=== PATIENT | female | born 1935 | race American Indian/Alaskan Native ===

== ENCOUNTER 2017-05-22 14:38 | Inpatient (IN) | payer MEDICARE ==
[2017-05-22 17:21] LABS: Basophils % (Auto) 0.2 % (0.0-1.8); Eosinophils % (Auto) 1.4 % (0.0-4.3); Hematocrit 35.3 % (30.3-42.9); Hemoglobin 11.4 gm/dl (10.1-14.3); Mean Corpuscular HGB Conc 32 % (30-34); Mean Corpuscular Hemoglobin 27 pg (28-32); Mean Corpuscular Volume 82 fl (79-97); Platelet Count 224 K/mm3 (140-440); Red Blood Count 4.28 M/mm3 (3.65-5.03); Red Cell Distribution Width 15.2 % (13.2-15.2); White Blood Count 18.7 K/mm3 (4.5-11.0)
[2017-05-22 17:50] LABS: Bacteria,Urine 3+ /HPF (Negative); Bilirubin,Urine NEG (Negative); Blood,Urine NEG (Negative); Ketones,Urine NEG (Negative); Leukocyte Esterase,Urine TR (Negative); Mucus,Urine 3+ /HPF; Nitrite,Urine NEG (Negative); Protein,Urine <15 mg/dL mg/dL (Negative); RBC,Urine < 1.0 /HPF (0.0-6.0); Urobilinogen,Urine < 2.0 mg/dL (<2.0)
[2017-05-22 17:54] LABS: Calcium 9.3 mg/dL (8.4-10.2); Chloride 101.4 mmol/L (98-107); Potassium 4.9 mmol/L (3.6-5.0)
--- NOTE | 2017-05-22 18:40 | Emergency Department Report ---
ED Altered Mental Status HPI - General Chief Complaint: Medical Clearance Stated Complaint: AMS Source: patient, EMS, old records reviewed Mode of arrival: Stretcher Limitations: No Limitations - History of Present Illness Initial Comments: 82-year-old female the past medical history of arthritis, CHF, diabetes, ischemic cardiomyopathy, and previous CABG presents to the hospital with complaints of not feeling well. Patient apparently has been recently treated for UTI. Patient reports decreased appetite and abdominal pain with urination. Patient also has a history of chronic left heel ulcer that has been acutely painful the last 2 days. No fever reported. As per HI MAR patient has been on Cipro 500 mg twice a day since May 22. 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 Intervention such bypass was recommended. - Related Data Home Medications Medication Instructions Recorded Confirmed Last Taken Oxybutynin Chloride [Ditropan Xl] 10 mg PO DAILY #0 05/30/16 11/24/16 Unknown Carvedilol [Coreg] 6.25 mg PO QDAY 11/24/16 11/24/16 Unknown Clopidogrel Bisulfate [Plavix] 75 mg PO QDAY 11/24/16 11/24/16 Unknown Docusate Sodium [Colace CAP] 100 mg PO BID 11/24/16 11/24/16 Unknown Ferrous Sulfate [Feosol 325 MG tab] 325 mg PO QDAY 11/24/16 11/24/16 Unknown Gluc Davies/Chondro Davies A/Vit C/Mn 1 cap PO QDAY 11/24/16 11/24/16 Unknown [Glucosamine 1,500 Complex Cp] ISOSORBIDE MONOnitrate [Imdur ER] 60 mg PO BID 11/24/16 11/24/16 Unknown Multivit with Calcium,Iron,Min 1 tab PO QDAY 11/24/16 11/24/16 Unknown [Multiple Vitamins For Women] Ondansetron [Zofran ORAL LIQ] 4 mg IM Q6H PRN 11/24/16 11/24/16 Unknown Pregabalin [Lyrica] 75 mg PO Q8H 11/24/16 11/24/16 Unknown Previous Rx's Medication Instructions Recorded Last Taken Type Gabapentin [Neurontin] 300 mg PO Q8HR capsule 11/27/16 Unknown Rx Levofloxacin [Levaquin TAB] 500 mg PO QDAY #5 tablet 11/27/16 Unknown Rx Pot Phosphate/Na Phosphate 1 each PO BID #14 powd.pack 11/27/16 Unknown Rx [Phos-Nak] Spironolactone [Aldactone] 25 mg PO QDAY tablet 11/27/16 Unknown Rx hydrALAZINE [Apresoline TAB] 25 mg PO Q8HR tablet 11/27/16 Unknown Rx Allergies Allergy/AdvReac Type Severity Reaction Status Date / Time epinephrine Allergy Unknown Verified 05/29/16 17:42 morphine Allergy Unknown Verified 05/29/16 17:42 Penicillins Allergy Unknown Verified 05/29/16 17:42 ED Review of Systems ROS: Stated complaint: AMS Other details as noted in HPI Comment: All other systems reviewed and negative Other: Constitutional: No fevers chills or weight loss Eyes: No eye pain visual changes or discharge ENT: No ear pain or throat pain Neck: Denies pain Respiratory: Denies cough wheezing shortness of breath Cardiovascular: Denies chest pain, palpitations, syncope GI: Denies nausea, vomiting, diarrhea : As per HPI Musculoskeletal: As per HPI Skin: Denies rash, lesions, erythema Neurologic: Denies headache, numbness, weakness Psychiatric: Denies suicidal ideation, hallucinations ED Past Medical Hx - Past Medical History Previous Medical History?: Yes Hx Hypertension: Yes Hx Congestive Heart Failure: Yes (06/05/2016: EF 25-30%) Hx Diabetes: Yes (type 2) Hx Arthritis: Yes Additional medical history: Hyperlipidemia. Ischemic cardiomyopathy. Chronic pain syndrome - Surgical History Past Surgical History?: Yes Hx Open Heart Surgery: Yes (cabg) Hx Pacemaker: Yes Hx Internal Defibrillator: Yes - Social History Smoking Status: Never Smoker - Medications Home Medications: Home Medications Medication Instructions Recorded Confirmed Last Taken Type Oxybutynin Chloride [Ditropan Xl] 10 mg PO DAILY #0 05/30/16 11/24/16 Unknown History Carvedilol [Coreg] 6.25 mg PO QDAY 11/24/16 11/24/16 Unknown History Clopidogrel Bisulfate [Plavix] 75 mg PO QDAY 11/24/16 11/24/16 Unknown History Docusate Sodium [Colace CAP] 100 mg PO BID 11/24/16 11/24/16 Unknown History Ferrous Sulfate [Feosol 325 MG tab] 325 mg PO QDAY 11/24/16 11/24/16 Unknown History Gluc Davies/Chondro Davies A/Vit C/Mn 1 cap PO QDAY 11/24/16 11/24/16 Unknown History [Glucosamine 1,500 Complex Cp] ISOSORBIDE MONOnitrate [Imdur ER] 60 mg PO BID 11/24/16 11/24/16 Unknown History Multivit with Calcium,Iron,Min 1 tab PO QDAY 11/24/16 11/24/16 Unknown History [Multiple Vitamins For Women] Ondansetron [Zofran ORAL LIQ] 4 mg IM Q6H PRN 11/24/16 11/24/16 Unknown History Pregabalin [Lyrica] 75 mg PO Q8H 11/24/16 11/24/16 Unknown History Gabapentin [Neurontin] 300 mg PO Q8HR capsule 11/27/16 Unknown Rx Levofloxacin [Levaquin TAB] 500 mg PO QDAY #5 tablet 11/27/16 Unknown Rx Pot Phosphate/Na Phosphate 1 each PO BID #14 powd.pack 11/27/16 Unknown Rx [Phos-Nak] Spironolactone [Aldactone] 25 mg PO QDAY tablet 11/27/16 Unknown Rx hydrALAZINE [Apresoline TAB] 25 mg PO Q8HR tablet 11/27/16 Unknown Rx ED Physical Exam - General Limitations: No Limitations - Other Other exam information: General: No limitations, patient is alert in no acute distress Head exam: Atraumatic, normocephalic Eyes exam: Normal appearance ENT: Moist mucous membranes Neck exam: Normal inspection, full range of motion, no meningismus nontender Respiratory exam: Clear to auscultation bilateral, no wheezes, rales, crackles Cardiovascular: Normal rate and rhythm, normal heart sounds Abdomen: Soft, nondistended, and nontender, with normal bowel sounds, no rebound, or guarding Extremity: Full range of motion, left ear pressure ulcer that is tender to palpation without any drainage, warmth, or noticeable erythema Back: Normal Inspection, full range of motion, no tenderness Neurologic: Alert, oriented x3, cranial nerves intact, no motor or sensory deficit Psychiatric: normal affect, normal mood Skin: Warm, dry, intact ED Course Vital Signs 05/22/17 16:19 Temperature 99.1 F Pulse Rate 64 Respiratory 16 Rate Blood Pressure 126/60 [Left] O2 Sat by Pulse 98 Oximetry - Lab Data Result diagrams: 05/22/17 17:02 05/22/17 17:02 Lab Results 05/22/17 05/22/17 05/22/17 Range/Units 17:02 17:02 17:27 WBC 18.7 H (4.5-11.0) K/mm3 RBC 4.28 (3.65-5.03) M/mm3 Hgb 11.4 (10.1-14.3) gm/dl Hct 35.3 (30.3-42.9) % MCV 82 (79-97) fl MCH 27 L (28-32) pg MCHC 32 (30-34) % RDW 15.2 (13.2-15.2) % Plt Count 224 (140-440) K/mm3 Lymph % (Auto) 10.8 L (13.4-35.0) % [place] % (Auto) 9.0 H (0.0-7.3) % Eos % (Auto) 1.4 (0.0-4.3) % Baso % (Auto) 0.2 (0.0-1.8) % Lymph # 2.0 (1.2-5.4) K/mm3 [place] # 1.7 H (0.0-0.8) K/mm3 Eos # 0.3 (0.0-0.4) K/mm3 Baso # 0.0 (0.0-0.1) K/mm3 Seg Neutrophils % 78.6 H (40.0-70.0) % Seg Neutrophils # 14.7 H (1.8-7.7) K/mm3 VBG pH (7.320-7.420) Sodium 138 (137-145) mmol/L Potassium 4.9 (3.6-5.0) mmol/L Chloride 101.4 (98-107) mmol/L Carbon Dioxide 20 L (22-30) mmol/L Anion Gap 22 mmol/L BUN 32 H (7-17) mg/dL Creatinine 1.2 (0.7-1.2) mg/dL Estimated GFR 52 ml/min BUN/Creatinine Ratio 27 % Glucose 101 H (65-100) mg/dL Lactic Acid (0.7-2.0) mmol/L Calcium 9.3 (8.4-10.2) mg/dL Urine Color Yellow (Yellow) Urine Turbidity Clear (Clear) Urine pH 5.0 (5.0-7.0) Ur Specific [place] 1.011 (1.003-1.030) Urine Protein <15 mg/dl (Negative) mg/dL Urine Glucose (UA) Neg (Negative) mg/dL Urine Ketones Neg (Negative) mg/dL Urine Blood Neg (Negative) Urine Nitrite Neg (Negative) Urine Bilirubin Neg (Negative) Urine Urobilinogen < 2.0 (<2.0) mg/dL Ur Leukocyte Esterase Tr (Negative) Urine WBC (Auto) 1.0 (0.0-6.0) /HPF Urine RBC (Auto) < 1.0 (0.0-6.0) /HPF U Epithel Cells (Auto) 2.0 (0-13.0) /HPF Urine Bacteria (Auto) 3+ (Negative) /HPF Urine Mucus 3+ /HPF 05/22/17 05/22/17 Range/Units 19:34 19:34 WBC (4.5-11.0) K/mm3 RBC (3.65-5.03) M/mm3 Hgb (10.1-14.3) gm/dl Hct (30.3-42.9) % MCV (79-97) fl MCH (28-32) pg MCHC (30-34) % RDW (13.2-15.2) % Plt Count (140-440) K/mm3 Lymph % (Auto) (13.4-35.0) % [place] % (Auto) (0.0-7.3) % Eos % (Auto) (0.0-4.3) % Baso % (Auto) (0.0-1.8) % Lymph # (1.2-5.4) K/mm3 [place] # (0.0-0.8) K/mm3 Eos # (0.0-0.4) K/mm3 Baso # (0.0-0.1) K/mm3 Seg Neutrophils % (40.0-70.0) % Seg Neutrophils # (1.8-7.7) K/mm3 VBG pH 7.348 (7.320-7.420) Sodium (137-145) mmol/L Potassium (3.6-5.0) mmol/L Chloride (98-107) mmol/L Carbon Dioxide (22-30) mmol/L Anion Gap mmol/L BUN (7-17) mg/dL Creatinine (0.7-1.2) mg/dL Estimated GFR ml/min BUN/Creatinine Ratio % Glucose (65-100) mg/dL Lactic Acid 1.20 (0.7-2.0) mmol/L Calcium (8.4-10.2) mg/dL Urine Color (Yellow) Urine Turbidity (Clear) Urine pH (5.0-7.0) Ur Specific [place] (1.003-1.030) Urine Protein (Negative) mg/dL Urine Glucose (UA) (Negative) mg/dL Urine Ketones (Negative) mg/dL Urine Blood (Negative) Urine Nitrite (Negative) Urine Bilirubin (Negative) Urine Urobilinogen (<2.0) mg/dL Ur Leukocyte Esterase (Negative) Urine WBC (Auto) (0.0-6.0) /HPF Urine RBC (Auto) (0.0-6.0) /HPF U Epithel Cells (Auto) (0-13.0) /HPF Urine Bacteria (Auto) (Negative) /HPF Urine Mucus /HPF - EKG Data -: EKG Interpreted by Me ( v paced rhythm rate 70) EKG shows normal: axis (263), QRS complexes (136), ST-T waves (no stemi) - Radiology Data Radiology results: report reviewed (ct head and mild chronic small vessel ischemic changes are seen without evidence of acute abnormality: ) Chest x-ray: Pacemaker/defibrillator visualized, no infiltrate or acute abnormality Left foot x-ray: No subcutaneous air, osteopenia, calcified vessels, no fracture - Medical Decision Making Plan to admit patient to the hospital. Will continue antibiotics given recent history UTI. Positive leukocytosis without signs of sepsis at this time. Levaquin and vancomycin ordered also to cover for possible left heel infection given acute increase in pain. Mild dehydration with decreased appetite reported he patient has a history of CHF so a slow IV infusion of 250 mL of normal saline initiated - Differential Diagnosis heel cellulitis, UTI, encephalopathy, dehydration Critical Care Time: No Critical care attestation.: If time is entered above; I have spent that time in minutes in the direct care of this critically ill patient, excluding procedure time. ED Disposition Clinical Impression: Hx of CABG, Leukocytosis, Recent urinary tract infection, Ulcer of left heel, Dehydration, Hx of congestive heart failure Disposition: [id number] OP ADMIT IP TO THIS HOSP Is pt being admited?: Yes Condition: Stable Time of Disposition: 22:32 (Dr flores/hosp)
--- NOTE | 2017-05-22 19:15 | Cat Scan Report ---
FINAL REPORT PROCEDURE: CT HEAD/BRAIN WO CON TECHNIQUE: Computerized tomography of the head was performed without contrast material. HISTORY: ams, lethargy COMPARISON: Head CT dated May 29, 2016 FINDINGS: Deformity of the medial wall of the left orbit is consistent with old fracture. No fluid is seen in the paranasal sinuses or mastoid air cells. Calcifications are seen in the distal vertebral arteries and distal ICAs. Stable idiopathic calcifications are seen in the ankita. There is no associated mass effect. Idiopathic calcifications are seen in the left basal ganglia, also. Cerebral ventricles are normal in size. Mild periventricular hypodensities are seen, primarily in the periatrial regions. Findings are probably due to chronic small vessel ischemic changes, similar to prior study. No acute intracranial hemorrhage is seen. IMPRESSION: Mild chronic small vessel ischemic changes are seen without evidence of acute abnormality.
[2017-05-22] MEDS ORDERED: VANCOMYCIN/NS 1 GM/250 ML 1 GM/250 ML BAG IV ONE (20:53)
[2017-05-22] MEDS ORDERED: TORADOL IV ONE (20:53)
[2017-05-22] MEDS ORDERED: LEVAQUIN 750MG/150ML 750 MG/150 ML BAG IV ONE (20:54)
[2017-05-22] MEDS ORDERED: NACL 0.9% 250ML 250 ML IV ONE (20:54)
[2017-05-22] MEDS ORDERED: MILK OF MAGNESIA PO PRN (23:38)
[2017-05-22] MEDS ORDERED: ZOFRAN IV PRN (23:38)
[2017-05-22] MEDS ORDERED: DULCOLAX PR PRN (23:38)
[2017-05-22] MEDS ORDERED: TYLENOL PO PRN (23:38)
[2017-05-22] MEDS ORDERED: NACL ONE (23:42)
--- NOTE | 2017-05-22 23:43 | History and Physical Report ---
History of Present Illness Date of examination: 05/22/17 History of present illness: 81-year-old woman with a history of hypertension, CHF, coronary artery disease, comes emergency room with complaints of left knee pain intermittent for 1 week. She denies trauma, fall, abdominal pain. Review Of Systems: Constitutional: no weight loss Ears, eyes, nose, mouth and throat: no nasal congestion, no nasal discharge, no sinus pressure, blurry vision, diplopia Neck: No neck pain or rigidity. Cardiovascular:no chest pain, orthopnea, palpitations Respiratory: No shortness of breath, cough Gastrointestinal: no abdominal pain, hematochezia Genitourinary : no dysuria, frequency , hematuria Musculoskeletal: no muscle ache Integumentary: no rash, no pruritis Neurological: no parathesias, focal weakness Endocrine: no cold or heat intolerance, no polyuria or polydipsia Hematologic/Lymphatic: no easy bruising, no easy bleeding, no gland swelling Allergic/Immunologic: no urticaria, no angioedema. PAST SURGICAL HISTORY: Knee surgery, CABG SOCIAL HISTORY: Denies alcohol, tobacco, drugs FAMILY HISTORY: Hypertension Medications and Allergies Allergies Allergy/AdvReac Type Severity Reaction Status Date / Time epinephrine Allergy Unknown Verified 05/29/16 17:42 morphine Allergy Unknown Verified 05/29/16 17:42 Penicillins Allergy Unknown Verified 05/29/16 17:42 Home Medications Medication Instructions Recorded Confirmed Last Taken Type Carvedilol [Coreg] 6.25 mg PO QDAY 11/24/16 05/23/17 Unknown History Clopidogrel Bisulfate [Plavix] 75 mg PO QDAY 11/24/16 05/23/17 Unknown History Docusate Sodium [Colace CAP] 100 mg PO BID 11/24/16 05/23/17 Unknown History Ferrous Sulfate [Feosol 325 MG tab] 325 mg PO QDAY 11/24/16 05/23/17 Unknown History Gluc Davies/Chondro Davies A/Vit C/Mn 1 cap PO QDAY 11/24/16 05/23/17 Unknown History [Glucosamine 1,500 Complex Cp] ISOSORBIDE MONOnitrate [Imdur ER] 60 mg PO BID 11/24/16 05/23/17 Unknown History Multivit with Calcium,Iron,Min 1 tab PO QDAY 11/24/16 05/23/17 Unknown History [Multiple Vitamins For Women] Pregabalin [Lyrica] 75 mg PO Q8H 11/24/16 05/23/17 Unknown History Gabapentin [Neurontin] 300 mg PO Q8HR capsule 11/27/16 05/23/17 Unknown Rx Spironolactone [Aldactone] 25 mg PO QDAY tablet 11/27/16 05/23/17 Unknown Rx hydrALAZINE [Apresoline TAB] 25 mg PO Q8HR tablet 11/27/16 05/23/17 Unknown Rx Acetaminophen [Acetaminophen ER 650 mg PO Q6HR PRN 05/23/17 05/23/17 Unknown History TAB] Atorvastatin Calcium [Atorvastatin 10 mg PO QPM 05/23/17 05/23/17 Unknown History Calcium] Ciprofloxacin HCl [Cipro] 500 mg PO BID 05/23/17 05/23/17 Unknown History HYDROcodone/APAP 5-325 [[place] 1 each PO Q4HR PRN 05/23/17 05/23/17 Unknown History 5/325] Phenazopyridine [Pyridium] 200 mg PO TID 05/23/17 05/23/17 Unknown History Active Meds: Active Medications Acetaminophen (Tylenol) 650 mg PO Q4H PRN PRN Reason: Pain MILD(1-3)/Fever >100.5/FERRIS Bisacodyl (Dulcolax) 10 mg LA QDAY PRN PRN Reason: Constipation unrelieved by MOM Enoxaparin Sodium (Lovenox) 30 mg SUB-Q QDAY DALILA Sodium Chloride (Nacl 0.9% 250ml) 250 mls @ 75 mls/hr IV ONCE ONE Stop: 05/23/17 00:13 Last Admin: 05/22/17 21:51 Dose: 75 mls/hr Levofloxacin/Dextrose (Levaquin 750mg/150ml) 750 mg in 150 mls @ 100 mls/hr IV Q24H DALILA Magnesium Hydroxide (Milk Of Magnesia) 30 ml PO Q4H PRN PRN Reason: Constipation Ondansetron HCl (Zofran) 4 mg IV Q8H PRN PRN Reason: N/V unrelieved by Reglan Exam - Physical Exam Narrative exam: Gen. appearance: Patient lying in bed, no apparent distress HEENT: Normocephalic, atraumatic, pupils equally round and reactive to light, extraocular movement intact, and no sclericterus,. No JVD or thyromegaly or nodule,neck supple, no carotid bruit ,mucous membranes moist, no exudate or erythema Heart: S1, S2, regular rate and rhythm Lungs: Clear to auscultation bilaterally, breathing comfortable Abdomen: Positive bowel sounds, nontender, nondistended, no organomegaly Extremity: +heel ulcer, no edema, cyanosis, clubbing Skin: No rash, nodules, warm, dry Neuro: Oriented 3, cranial nerves II-12 intact, speech is fluent, motor and sensory intact - Constitutional Vitals: Temp Pulse Resp BP Pulse Ox 98.6 F 65 18 147/52 95 05/22/17 22:06 05/22/17 22:06 05/22/17 22:06 05/22/17 22:06 05/22/17 22:06 Results - Labs CBC & Chem 7: 05/23/17 04:28 05/23/17 04:28 Labs: Abnormal lab results 05/22/17 05/22/17 Range/Units 17:02 17:02 WBC 18.7 H (4.5-11.0) K/mm3 MCH 27 L (28-32) pg Lymph % (Auto) 10.8 L (13.4-35.0) % [place] % (Auto) 9.0 H (0.0-7.3) % [place] # 1.7 H (0.0-0.8) K/mm3 Seg Neutrophils % 78.6 H (40.0-70.0) % Seg Neutrophils # 14.7 H (1.8-7.7) K/mm3 Carbon Dioxide 20 L (22-30) mmol/L BUN 32 H (7-17) mg/dL Glucose 101 H (65-100) mg/dL - Imaging and Cardiology EKG: image reviewed Chest x-ray: image reviewed CT Scan - head: report reviewed Assessment and Plan Assessment SIRS knee pain CHF, stable CAD hypertension heel ulcer Plan Admit to medicine Start emperic antibiotic, follow cultures Obrtain CT of knee Wound care consult Continue appropiate outpatient medications
[2017-05-22] MEDS ORDERED: LEVAQUIN 750MG/150ML 750 MG/150 ML BAG IV SCH (23:45)
[2017-05-23] MEDS ORDERED: PERCOCET 5/325 PO ONE (00:20)
[2017-05-23] MEDS ORDERED: PERCOCET 5/325 ONE (00:22)
--- NOTE | 2017-05-23 01:23 | Cat Scan Report ---
FINAL REPORT PROCEDURE: CT LOWER EXTREMITY LT WO CON TECHNIQUE: Computerized axial tomography of the LEFT knee was performed without contrast. HISTORY: left knee pain, s/p surgery COMPARISON: No prior studies are available for comparison. FINDINGS: There has been a total knee replacement. The hardware is intact. There are no fractures or malalignments. There is no soft tissue swelling or mass. There is no joint effusion. There are diffuse vascular calcifications. IMPRESSION: Hardware is intact. There is no acute bony or soft tissue abnormality.
--- NOTE | 2017-05-23 01:42 | History and Physical Report ---
History of Present Illness Date of examination: 05/22/17 Date of admission: 05/22/17 23:38 Medications and Allergies Allergies Allergy/AdvReac Type Severity Reaction Status Date / Time epinephrine Allergy Unknown Verified 05/29/16 17:42 morphine Allergy Unknown Verified 05/29/16 17:42 Penicillins Allergy Unknown Verified 05/29/16 17:42 Home Medications Medication Instructions Recorded Confirmed Last Taken Type Carvedilol [Coreg] 6.25 mg PO QDAY 11/24/16 05/23/17 Unknown History Clopidogrel Bisulfate [Plavix] 75 mg PO QDAY 11/24/16 05/23/17 Unknown History Docusate Sodium [Colace CAP] 100 mg PO BID 11/24/16 05/23/17 Unknown History Ferrous Sulfate [Feosol 325 MG tab] 325 mg PO QDAY 11/24/16 05/23/17 Unknown History Gluc Davies/Chondro Davies A/Vit C/Mn 1 cap PO QDAY 11/24/16 05/23/17 Unknown History [Glucosamine 1,500 Complex Cp] ISOSORBIDE MONOnitrate [Imdur ER] 60 mg PO BID 11/24/16 05/23/17 Unknown History Multivit with Calcium,Iron,Min 1 tab PO QDAY 11/24/16 05/23/17 Unknown History [Multiple Vitamins For Women] Pregabalin [Lyrica] 75 mg PO Q8H 11/24/16 05/23/17 Unknown History Gabapentin [Neurontin] 300 mg PO Q8HR capsule 11/27/16 05/23/17 Unknown Rx Spironolactone [Aldactone] 25 mg PO QDAY tablet 11/27/16 05/23/17 Unknown Rx hydrALAZINE [Apresoline TAB] 25 mg PO Q8HR tablet 11/27/16 05/23/17 Unknown Rx Acetaminophen [Acetaminophen ER 650 mg PO Q6HR PRN 05/23/17 05/23/17 Unknown History TAB] Atorvastatin Calcium [Atorvastatin 10 mg PO QPM 05/23/17 05/23/17 Unknown History Calcium] Ciprofloxacin HCl [Cipro] 500 mg PO BID 05/23/17 05/23/17 Unknown History HYDROcodone/APAP 5-325 [[place] 1 each PO Q4HR PRN 05/23/17 05/23/17 Unknown History 5/325] Phenazopyridine [Pyridium] 200 mg PO TID 05/23/17 05/23/17 Unknown History Active Meds: Active Medications Acetaminophen (Tylenol) 650 mg PO Q4H PRN PRN Reason: Pain MILD(1-3)/Fever >100.5/FERRIS Bisacodyl (Dulcolax) 10 mg [place] QDAY PRN PRN Reason: Constipation unrelieved by MOM Enoxaparin Sodium (Lovenox) 40 mg SUB-Q QDAY DALILA Levofloxacin/Dextrose (Levaquin 750mg/150ml) 750 mg in 150 mls @ 100 mls/hr IV Q24HR DALILA Magnesium Hydroxide (Milk Of Magnesia) 30 ml PO Q4H PRN PRN Reason: Constipation Ondansetron HCl (Zofran) 4 mg IV Q8H PRN PRN Reason: N/V unrelieved by Reglan Exam - Physical Exam Narrative exam: Gen. appearance: Patient lying in bed, no apparent distress HEENT: Normocephalic, atraumatic, pupils equally round and reactive to light, extraocular movement intact, and no sclericterus,. No JVD or thyromegaly or nodule,neck supple, no carotid bruit ,mucous membranes moist, no exudate or erythema Heart: S1, S2, regular rate and rhythm Lungs: Clear to auscultation bilaterally, breathing comfortable Abdomen: Positive bowel sounds, nontender, nondistended, no organomegaly Extremity: edema of RLE, +serrous sanginous drainage from the wound, no cyanosis , clubbing Skin: No rash, nodules, warm, dry Neuro: Oriented 3, cranial nerves II-12 intact, speech is fluent, motor and sensory intact - Constitutional Vitals: Temp Pulse Resp BP Pulse Ox 98.6 F 73 17 138/45 95 05/22/17 22:06 05/23/17 00:19 05/23/17 00:19 05/23/17 00:19 05/22/17 22:06 Results - Labs CBC & Chem 7: 05/22/17 17:02 05/22/17 17:02 Labs: Abnormal lab results 05/22/17 05/22/17 Range/Units 17:02 17:02 WBC 18.7 H (4.5-11.0) K/mm3 MCH 27 L (28-32) pg Lymph % (Auto) 10.8 L (13.4-35.0) % [place] % (Auto) 9.0 H (0.0-7.3) % [place] # 1.7 H (0.0-0.8) K/mm3 Seg Neutrophils % 78.6 H (40.0-70.0) % Seg Neutrophils # 14.7 H (1.8-7.7) K/mm3 Carbon Dioxide 20 L (22-30) mmol/L BUN 32 H (7-17) mg/dL Glucose 101 H (65-100) mg/dL
[2017-05-23 05:26] LABS: Basophils % (Auto) 0.2 % (0.0-1.8); Eosinophils % (Auto) 1.6 % (0.0-4.3); Hematocrit 35.5 % (30.3-42.9); Hemoglobin 11.7 gm/dl (10.1-14.3); Mean Corpuscular HGB Conc 33 % (30-34); Mean Corpuscular Hemoglobin 28 pg (28-32); Mean Corpuscular Volume 85 fl (79-97); Platelet Count 203 K/mm3 (140-440); Red Blood Count 4.18 M/mm3 (3.65-5.03); Red Cell Distribution Width 15.4 % (13.2-15.2); White Blood Count 15.6 K/mm3 (4.5-11.0)
[2017-05-23 05:46] LABS: Calcium 9.1 mg/dL (8.4-10.2); Chloride 104.1 mmol/L (98-107); Potassium 4.8 mmol/L (3.6-5.0)
[2017-05-23] MEDS: APRESOLINE PO SCH ×3 (06:05→21:58)
[2017-05-23] MEDS: LYRICA PO SCH ×3 (06:05→23:52)
[2017-05-23] MEDS: NEURONTIN PO SCH ×3 (06:05→21:45)
--- NOTE | 2017-05-23 07:30 | XRay Report ---
AP CHEST: HISTORY: Leukocytosis, weakness Previous CABG changes are noted. A pacemaker device is in position. AP view of the chest demonstrates a normal mediastinal and cardiac contour with clear lungs and normal bony and soft tissue structures. IMPRESSION: No acute cardiopulmonary process identified.
--- NOTE | 2017-05-23 07:30 | XRay Report ---
LEFT FOOT, 2 VIEWS History: Heel ulcer, pain. Findings: There is advanced osteopenia. No fracture, bony destruction or periostitis is identified. Moderate diffuse arthritic changes. The soft tissues are edematous with vascular calcifications. Subtle ulceration in the heel region is noted but no obvious underlying osteomyelitis on x-ray. If further evaluation is needed, MRI left foot with contrast would provide the most information. Impression: Osteopenia. Degenerative changes. Soft tissue ulceration in the heel region but no convincing osteomyelitis.
--- NOTE | 2017-05-23 09:47 | Progress Note ---
Assessment and Plan Assessment and plan: Patient is a 82-year-old female the past medical history of arthritis, CHF, diabetes, ischemic cardiomyopathy, Cardiac cath 06/05/2016: EF 25-30%, severe triple [place] vessel disease with 100% ostial LAD and 100% RCA occlusion with heavy calcified [place] vessels. Patent saphenous graft to PDA however, severe in-stent restenosis supposed to 90% of the SVG graft to the LAD and previous CABG presents to the hospital with complaints of not feeling well. Patient apparently has been recently treated for UTI and started on Cipro 500mg BID since may Patient reports decreased appetite and abdominal pain with urination only. Patient also has a history of chronic left heel ulcer that has been acutely painful the last one week. She also reports left knee pain on going for about a week, site of previous surgery. Assessment SIRS * Possible due to recent UTI, will request cultures from outpatient. Continue Abx, Also noted Left heel ulcer. * Leukocytosis trending down. 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 PT/OT Chronic systolic CHF, stable * Prior EF of 24th 30%, Continue current treatment Dysuria * Start on Pyridium CAD * Stable hypertension * Continue current treatment Unstageable Left Heel ulcer-POA * Wound consult. R/O Osteomylitis DVT and GI prophylaxis Case management consultation patient will likely need placement on discharge Assist with diet Fall precautions Plan of care discussed with the patient in detail. Also discussed with nursing staff. History Interval history: Patient is examined this morning complains of left kNEE pain and left heel pain that has been ongoing for about a week. She also reports abdominal pain but only associated with urination. She denies any fever, nausea vomiting or diarrhea. She knows she is in a hospital but does not know which hospital she is again. She had a time of my exam was eating her diet but only had about a third of the medial plate. Hospitalist Physical - Physical exam Narrative exam: VITAL SIGNS: Reviewed. GENERAL: The patient appeared well nourished and normally developed. Vital signs as documented. HEAD: No signs of head trauma. EYES: Pupils are equal. Extraocular motions intact. EARS: Hearing grossly intact. MOUTH: Oropharynx is normal. NECK: No adenopathy, no JVD. CHEST: Chest with clear breath sounds bilaterally. No wheezes, rales, or rhonchi. CARDIAC: Regular rate and rhythm. S1 and S2, without murmurs, gallops, or rubs. VASCULAR: No Edema. Peripheral pulses normal and equal in all extremities. ABDOMEN: Soft, without detectable tenderness. No sign of distention. No rebound or guarding, and no masses palpated. Bowel Sounds normal. MUSCULOSKELETAL: Tender at Heel, Knee, no warmth. Good range of motion of all major joints. Extremities without clubbing, cyanosis or edema. NEUROLOGIC EXAM: Alert and oriented x 3. No focal sensory or strength deficits. Speech normal. Follows commands. PSYCHIATRIC: Mood normal. SKIN: Old necrotic ulcer left heel. - Constitutional Vitals: Temp Pulse Resp BP Pulse Ox 97.4 F L 60 18 167/52 99 05/23/17 08:35 05/23/17 08:35 05/23/17 08:35 05/23/17 08:35 05/23/17 08:35 Results - Labs CBC & Chem 7: 05/23/17 04:28 05/23/17 04:28 Labs: Laboratory Last Values WBC 15.6 K/mm3 (4.5-11.0) H 05/23/17 04:28 RBC 4.18 M/mm3 (3.65-5.03) 05/23/17 04:28 Hgb 11.7 gm/dl (10.1-14.3) 05/23/17 04:28 Hct 35.5 % (30.3-42.9) 05/23/17 04:28 MCV 85 fl (79-97) 05/23/17 04:28 MCH 28 pg (28-32) 05/23/17 04:28 MCHC 33 % (30-34) 05/23/17 04:28 RDW 15.4 % (13.2-15.2) H 05/23/17 04:28 Plt Count 203 K/mm3 (140-440) 05/23/17 04:28 Lymph % (Auto) 9.9 % (13.4-35.0) L 05/23/17 04:28 [place] % (Auto) 5.5 % (0.0-7.3) 05/23/17 04:28 Eos % (Auto) 1.6 % (0.0-4.3) 05/23/17 04:28 Baso % (Auto) 0.2 % (0.0-1.8) 05/23/17 04:28 Lymph # 1.5 K/mm3 (1.2-5.4) 05/23/17 04:28 [place] # 0.9 K/mm3 (0.0-0.8) H 05/23/17 04:28 Eos # 0.3 K/mm3 (0.0-0.4) 05/23/17 04:28 Baso # 0.0 K/mm3 (0.0-0.1) 05/23/17 04:28 Seg Neutrophils % 82.8 % (40.0-70.0) H 05/23/17 04:28 Seg Neutrophils # 12.9 K/mm3 (1.8-7.7) H 05/23/17 04:28 VBG pH 7.348 (7.320-7.420) 05/22/17 19:34 Sodium 141 mmol/L (137-145) 05/23/17 04:28 Potassium 4.8 mmol/L (3.6-5.0) 05/23/17 04:28 Chloride 104.1 mmol/L (98-107) 05/23/17 04:28 Carbon Dioxide 20 mmol/L (22-30) L 05/23/17 04:28 Anion Gap 22 mmol/L 05/23/17 04:28 BUN 34 mg/dL (7-17) H 05/23/17 04:28 Creatinine 1.3 mg/dL (0.7-1.2) H 05/23/17 04:28 Estimated GFR 47 ml/min 05/23/17 04:28 BUN/Creatinine Ratio 26 % 05/23/17 04:28 Glucose 79 mg/dL (65-100) 05/23/17 04:28 Lactic Acid 1.20 mmol/L (0.7-2.0) 05/22/17 19:34 Calcium 9.1 mg/dL (8.4-10.2) 05/23/17 04:28 Urine Color Yellow (Yellow) 05/22/17 17:27 Urine Turbidity Clear (Clear) 05/22/17 17:27 Urine pH 5.0 (5.0-7.0) 05/22/17 17:27 Ur Specific [place] 1.011 (1.003-1.030) 05/22/17 17:27 Urine Protein <15 mg/dl mg/dL (Negative) 05/22/17 17:27 Urine Glucose (UA) Neg mg/dL (Negative) 05/22/17 17:27 Urine Ketones Neg mg/dL (Negative) 05/22/17 17: Urine Blood Neg (Negative) 05/22/17 17: Urine Nitrite Neg (Negative) 05/22/17 17: Urine Bilirubin Neg (Negative) 05/22/17 17: Urine Urobilinogen < 2.0 mg/dL (<2.0) 05/22/17 17: Ur Leukocyte Esterase Tr (Negative) 05/22/17 17:27 Urine WBC (Auto) 1.0 /HPF (0.0-6.0) 05/22/17 17:27 Urine RBC (Auto) < 1.0 /HPF (0.0-6.0) 05/22/17 17: U Epithel Cells (Auto) 2.0 /HPF (0-13.0) 05/22/17 17:27 Urine Bacteria (Auto) 3+ /HPF (Negative) 05/22/17 17: Urine Mucus 3+ /HPF 05/22/17 17: - Imaging and Cardiology Imaging and Cardiology: CT Ext with no joint effusion.
[2017-05-23] MEDS ORDERED: ALDACTONE PO SCH (10:00)
[2017-05-23] MEDS: COLACE PO SCH ×2 (10:22→21:43)
[2017-05-23] MEDS: PLAVIX PO SCH (10:22)
[2017-05-23] MEDS: PYRIDIUM PO SCH ×3 (10:22→21:44)
[2017-05-23] MEDS: FEOSOL PO SCH (10:22)
[2017-05-23] MEDS: LOVENOX SUB-Q SCH (10:22)
[2017-05-23] MEDS: IMDUR PO SCH ×2 (10:23→22:01)
[2017-05-23] MEDS: LEVAQUIN 750MG/150ML 750 MG/150 ML BAG IV SCH (10:24)
[2017-05-23] MEDS: COREG PO SCH (10:24)
--- NOTE | 2017-05-23 10:25 | XRay Report ---
LEFT ANKLE, 2 VIEWS History: Osteomyelitis. Findings: Compared to the left foot performed yesterday. Osteopenia is again noted. There are moderate osteoarthritic changes are noted no fracture or obvious bony destruction. Mild diffuse soft tissue swelling and vascular calcifications. Impression: Osteopenia. Degenerative changes. Soft tissue swelling. No obvious findings of osteomyelitis.
[2017-05-23] MEDS ORDERED: NACL 0.9% 1000 ML 1,000 ML IV SCH (10:30)
--- NOTE | 2017-05-23 15:35 | Cat Scan Report ---
FINAL REPORT EXAM: CT ABDOMEN PELVIS W CON HISTORY: suprapubic pain TECHNIQUE: CT examination of the ABDOMEN after IV contrast CT examination of the PELVIS after IV contrast PRIORS: None. FINDINGS: Large centrally calcified granuloma in the lingula. Degenerative change in the regional skeleton. Slight chronic appearing compression fracture of the upper endplate of L2. Slight degenerative anterolisthesis at L4-5. Median sternotomy wire sutures in place. Left chest cardiac pacemaker partly imaged. Cardiomegaly without pericardial effusion. A smoothly marginated hypodense left hepatic lobe lesion is nonspecific and may reflect a cyst or hemangioma. It is too small to characterize in the lateral segment of the left hepatic lobe. It does not enhance with IV contrast. Normal-appearing gallbladder, adrenals, pancreas, and spleen. Intact normal caliber abdominal aorta with moderate to severe calcified atherosclerotic plaque. Normal caliber IVC. Normal-appearing right kidney and ureter. Normal-appearing left ureter. There is diffuse heterogeneous parenchymal hypo enhancement involving the left renal midpole with central and lateral predominance. No definite associated mass. Although nonspecific, this finding may reflect devascularization from ischemia versus pyelonephritis with parenchymal regions of inflammation/infection. Severe calcified atherosclerotic plaque is noted in the proximal aspect of both renal arteries which may be associated with stenosis, raising suspicion this may reflect ischemia and/or renal infarct. Very small fat containing umbilical hernia. Normal-appearing stomach and duodenum. No small bowel distention in the abdomen and pelvis. No definite mesenteric mass. No pelvic free fluid. Normal-appearing urinary bladder. Uterus not visualized. No adnexal abnormality. Normal-appearing rectum. Nonspecific slight mural thickening in the distal portion of the descending colon and throughout the sigmoid colon. Slight proximal diverticulosis in the descending colon but not in the region of mural thickening. Considerations include ischemia and/or nonspecific colitis. There is prominent plaque at the origin of the SMA and celiac artery which may be associated with stenosis. No gross ascites, free air, or colonic distention. Normal-appearing cecum and terminal ileum. Appendix not visualized. No pericecal inflammation. IMPRESSION: Left renal parenchymal hypo enhancement may be secondary to pyelonephritis. The differential includes ischemia and/or renal infarct given evidence of prominent calcified plaque at the origin of both renal arteries. Nonspecific diffuse mural thickening in the distal descending colon and throughout the sigmoid colon may reflect nonspecific colitis. The differential includes ischemia since there is prominent atherosclerotic calcified plaque at the origin of the SMA and celiac artery. Chronic appearing slight compression fracture of L2 Cardiomegaly
[2017-05-24] MEDS ORDERED: NORCO 5/325 PO ONE (01:28)
[2017-05-24 06:14] LABS: Hematocrit 36.2 % (30.3-42.9); Mean Corpuscular HGB Conc 33 % (30-34); Mean Corpuscular Hemoglobin 28 pg (28-32); Mean Corpuscular Volume 85 fl (79-97); Red Blood Count 4.24 M/mm3 (3.65-5.03); Red Cell Distribution Width 15.4 % (13.2-15.2); White Blood Count 12.6 K/mm3 (4.5-11.0)
[2017-05-24 06:26] LABS: Platelet Count 190 K/mm3 (140-440)
[2017-05-24 06:28] LABS: Calcium 8.7 mg/dL (8.4-10.2); Chloride 103.8 mmol/L (98-107)
[2017-05-24] MEDS: APRESOLINE PO SCH (06:48)
[2017-05-24] MEDS: LYRICA PO SCH (06:48)
[2017-05-24] MEDS: NEURONTIN PO SCH (06:48)
[2017-05-24] MEDS: PYRIDIUM PO SCH (08:30)
[2017-05-24 09:05] VITALS: BP 150/58
--- NOTE | 2017-05-24 09:56 | Discharge Summary ---
Providers - Providers Date of Admission: 05/22/17 23:38 Attending physician: ADRIAN CARTER MD 05/23/17 05:37 Consult to Wound/ET Nurse [CONS] Routine Reason For Exam: wound eval 05/23/17 09:50 Physical Therapy Evaluation and Treat [CONS] Routine Comment: Reason For Exam: debility Primary care physician: [employer]IM[employer] Hospitalization Reason for admission: encephalopathy Condition: Stable Hospital course: Patient is a 82-year-old female the past medical history of arthritis, CHF, diabetes, ischemic cardiomyopathy, Cardiac cath 06/05/2016: EF 25-30%, severe triple [place] vessel disease with 100% ostial LAD and 100% RCA occlusion with heavy calcified [place] vessels. Patent saphenous graft to PDA however, severe in-stent restenosis supposed to 90% of the SVG graft to the LAD and previous CABG presents to the hospital with complaints of not feeling well. According to snf patient was confused this am, Prompting a call to EMS. Patient apparently has been recently treated for UTI and started on Cipro 500mg BID since may Patient reports decreased appetite and abdominal pain with urination only. Patient also has a history of chronic left heel ulcer that has been acutely painful the last one week. She also reports left knee pain on going for about a week, site of previous surgery. Patient continue on treatment for Acute cystitis with improvement of mentation at the time I saw the patient, . The rest of her complaints except the knee and ankle were chronic and she is already on opioids. Imaging of the knee and ankle were unrevealing for acute pathology, passive PT is recommended with unloading. Wound care was consulted and no infected pathology is noted. Patent is back to baseline, awake, alert and oriented x3 and will be discharged back to [place] to follow with PCP. Continue woundcare outpatient and PT/OT. 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 GENERAL: The patient appeared well nourished and normally developed. Vital signs as documented. HEAD: No signs of head trauma. EYES: Pupils are equal. Extraocular motions intact. EARS: Hearing grossly intact. MOUTH: Oropharynx is normal. NECK: No adenopathy, no JVD. CHEST: Chest with clear breath sounds bilaterally. No wheezes, rales, or rhonchi. CARDIAC: Regular rate and rhythm. S1 and S2, without murmurs, gallops, or rubs. VASCULAR: No Edema. Peripheral pulses normal and equal in all extremities. ABDOMEN: Soft, without detectable tenderness. No sign of distention. No rebound or guarding, and no masses palpated. Bowel Sounds normal. MUSCULOSKELETAL: Tender at Heel, Knee, no warmth. Good range of motion of all major joints. Extremities without clubbing, cyanosis or edema. NEUROLOGIC EXAM: Alert and oriented x 3. No focal sensory or strength deficits. Speech normal. Follows commands. PSYCHIATRIC: Mood normal. SKIN: Old necrotic ulcer left heel. - Constitutional Vitals: Temp Pulse Resp BP Pulse Ox 98.6 F 60 20 150/58 100 05/24/17 08:21 05/24/17 08:21 05/24/17 08:21 05/24/17 08:21 05/24/17 09:19 Plan Activity: advance as tolerated, fall precautions Diet: low cholesterol Wound: per wound nurse instructions Special Instructions: record daily BP diary, physical therapy Additional Instructions: complete 5 days of cipro. Repeat CBC in 1 week-follow with PCP Follow up with: PRIMARY CARE, [Primary Care Provider] - 7 Days Prescriptions: HYDROcodone/APAP 5-325 [[place] 5-325 mg TAB] 1 each PO Q4HR PRN 5 Days tablet PRN Reason: Pain
[2017-05-24] MEDS: FEOSOL PO SCH (09:57)
[2017-05-24] MEDS: COLACE PO SCH (09:58)
[2017-05-24] MEDS: PLAVIX PO SCH (09:58)
[2017-05-24] MEDS: IMDUR PO SCH (09:59)
[2017-05-24] MEDS: COREG PO SCH (09:59)
[2017-05-24] MEDS: LEVAQUIN 750MG/150ML 750 MG/150 ML BAG IV SCH (10:00)
[2017-05-24] MEDS: LOVENOX SUB-Q SCH (10:02)
[2017-05-24] MEDS ORDERED: NACL 0.9% 500 ML 500 ML IV NR (10:30)
[2017-05-25] MEDS ORDERED: LEVAQUIN PO SCH (10:00)
--- NOTE | 2017-06-06 13:27 | Query-Infection ---
Dear ____Concepcion Date:___06/06/17 Real Estate Clerk/CDS:____Lynne / [place]oli Phone#:__[phone] Exercise your independent professional judgment when responding to this query. Questions asked do not imply a particular answer is desired or expected. We greatly appreciate your clarification on this issue. Clinical Documentation States: 82 year old female was admitted on 05/22/17 The H&P (Dr. Brothers) states " 81-year-old woman with a history of hypertension, CHF, coronary artery disease, comes emergency room with complaints of left knee pain intermittent for 1 week. " The discharge summary (Dr. Javier) states " Reason for admission: encephalopathy Acute Metabolic encephalopathy SIRS secondary to recently treated UTI " WBC: 18.7 Clinical findings show: (please check applicable parameters) Infection, known /suspected, with some of the following indicators; Specify the infection: 3 General parameters [ ] Fever (core temp >38.30C or 100.40F) [ ] Hypothermia (core temp <36C) [ ] Heart rate >90 bpm [ ] Tachypnea: >20 bpm or pCO2 < 32 mmHg [ ] Altered mental status [ ] Significant edema / +ve fluid balance (>20 ml/kg 24 h) [ ] Hyperglycemia (Bl. glucose >110 mg/dl) w/o diabetes Inflammatory parameters [ x] Leukocytosis (white blood cell count >12,000/l) [ ] Leukopenia (white blood cell count <4,000/l) [ ] Bandemia (immature WBC > 10%) [ ] Leucocyte Left Shift [ ] Plasma procalcitonin>2 SD above the normal value Hemodynamic and tissue perfusion parameters [ ] Arterial hypotension(SBP <90 mmHg, MAP <70 mmHg,or a SBP drop >40 mmHg in adults) [ ] Hyperlactatemia (>3 mmol/l) [ ] Anion Gap (> 11mEG/l) [ ] Decreased capillary refill or mottling Organ dysfunction parameters [ ] Arterial hypoxemia (PaO2/FIO2 <300) [ ] Creatinine increase =0.5 mg/dl [ ] Acute oliguria (urine output <0.5 ml | kg |h or 45 mM/l for at least 2 hrs) [ ] Coagulation abnormalities (INR >1.5 or activated partial thromboplastin time >60 s) [ ] Ileus (absent rose marie wel sounds) [ ] Thrombocytopenia (platelet count <100,000/l) [ ] Hyperbilirubinemia (plasma total bilirubin >4 mg/dl) According to the clinical indications above, can Bacteremia be further specified? If so, please indicate below and in your Progress Notes and/ or Discharge Summary. Indicate if the condition was present on admission. PHYSICIAN RESPONSE: [ ] Sepsis [ ] Severe Sepsis [ ] Septic Shock [ ] Septicemia [ ] Sepsis now resolved [ X] SIRS due to non-infectious cause with organ dysfunction [ ] SIRS due to non-infectious cause without organ dysfunction [ ] Other: [ ] Comment/Explanation: Present on Admission: [X ] Yes (Y) [ ] Clinically undeterminable (W) [ ] No (N) [ ] Ruled Out Please also document response in your Progress Notes and/or Discharge Summary and indicate if the condition was present on admission Notes: SIRS/ SIRS WITH ORGAN DYSFUNCTION Systemic inflammatory response syndrome (SIRS) generally refers to the systemic response to trauma/mckeon or other insult such as Acute Myocardial Infarction, Acute Pancreatitis, and Major Surgery with symptoms including fever, tachycardia , tachypnea, and leukocytosis (1). BACTEREMIA Presence of viable bacteria in the circulating blood (2). This term is reserved for patients that do not manifest above SIRS response. SEPTICEMIA Generally refers to a systemic disease associated with the presence of pathological microorganisms or toxins in the blood, which can include bacteria, viruses, fungi or other organisms (1). SEPSIS Generally refers to SIRS due infection (1). SEVERE SEPSIS Generally refers to sepsis associated with acute organ dysfunction (1). SEPTIC SHOCK Generally refers to circulatory failure associated with severe sepsis (2), and defined as hypotension or hypoperfusion despite adequate fluid resuscitation (1 hour) (3). REFERENCES: 1. [place] [employer]/Society of Critical Care Medicine Consensus Conference. Definitions for sepsis and organ failure and guidelines for the use of innovative therapies in sepsis. Critical Care Med 1992;20:864 - 74. 2. José morales MM, Allison MP, Joseph HEMPHILL, Jeromy E, Andrew Hyatt, Maxime D, Reveles J, Lecanto SM , Duncan JL, Facundo G; International Sepsis Definitions Conference. 2001 SCCM/ESICM/ACCP/ATS/SIS International Sepsis Definitions Conference. Intensive Care Med. 2002;29(4):530-8. Epub 2002Sep 12. Review. PubMed PMID:[id number] 3. ICD-9-CM Official Guidelines for Coding and Reporting 4. Medscape Drugs, Diseases and Procedures references 5. [employer] Textbook of Internal Medicine. 18th Edition MTDD
== END 2017-05-24 15:38 | DRG 682 ==
LOC: ED 14:38 → 2B-ACE 23:38
PROVIDERS: ADMIT Internal Medicine; ATTEND Internal Medicine
DX: N17.0 Acute kidney failure with tubular necrosis (principal); G93.41 Metabolic encephalopathy; R65.11 Systemic inflammatory response syndrome (SIRS) of non-infectious origin with acute organ dysfunction; N30.00 Acute cystitis without hematuria; I50.22 Chronic systolic (congestive) heart failure; L89.620 Pressure ulcer of left heel, unstageable; M19.90 Unspecified osteoarthritis, unspecified site; E11.9 Type 2 diabetes mellitus without complications; M17.12 Unilateral primary osteoarthritis, left knee; I25.10 Atherosclerotic heart disease of native coronary artery without angina pectoris; I11.0 Hypertensive heart disease with heart failure; Z95.1 Presence of aortocoronary bypass graft; Z82.49 Family history of ischemic heart disease and other diseases of the circulatory system; Z79.899 Other long term (current) drug therapy; Z88.0 Allergy status to penicillin; Z88.5 Allergy status to narcotic agent; Z88.6 Allergy status to analgesic agent; Z95.0 Presence of cardiac pacemaker
CPT/HCPCS: 36415; 70450; 71010; 74177; 80048; 81001; 82140; 82805; 82962; 85025; 85027; 86140; 87040; 93005; 93010; 96365; 96366; 96367; 96375; A9270-GY; G8978-GP; G8979-GP; G8980-GP; J1650; J1885; J1956; J3370; J7030; J7050; Q9967

== ENCOUNTER 2017-05-30 14:44 | Emergency (ER) | payer MEDICARE ==
[2017-05-30] MEDS ORDERED: TORADOL IV ONE (16:24)
[2017-05-30 16:54] LABS: Basophils % (Auto) 0.7 % (0.0-1.8); Eosinophils % (Auto) 7.1 % (0.0-4.3); Hematocrit 35.1 % (30.3-42.9); Hemoglobin 11.5 gm/dl (10.1-14.3); Mean Corpuscular HGB Conc 33 % (30-34); Mean Corpuscular Hemoglobin 27 pg (28-32); Mean Corpuscular Volume 82 fl (79-97); Platelet Count 353 K/mm3 (140-440); Red Blood Count 4.26 M/mm3 (3.65-5.03); Red Cell Distribution Width 14.7 % (13.2-15.2); White Blood Count 12.2 K/mm3 (4.5-11.0)
[2017-05-30 17:14] LABS: Alanine Aminotransferase 21 units/L (7-56); Albumin 3.8 g/dL (3.9-5); Albumin/Globulin Ratio 1.7 %; Alkaline Phosphatase 89 units/L (35-129); Amylase 74 units/L (27-131); Anion Gap 21 mmol/L; BUN/Creatinine Ratio 28; Blood Urea Nitrogen 37 mg/dL (7-17); Calcium 9.6 mg/dL (8.4-10.2); Carbon Dioxide 22 mmol/L (22-30); Glucose 91 mg/dL (65-100); Lipase 55 units/L (13-60); Potassium 5.4 mmol/L (3.6-5.0); Sodium 141 mmol/L (137-145); Total Protein 6.1 g/dL (6.3-8.2)
[2017-05-30 17:15] LABS: Bilirubin,Direct < 0.2 mg/dL (0-0.2); Bilirubin,Indirect 0.2 mg/dL
[2017-05-30 18:50] LABS: Bilirubin,Urine NEG (Negative); Blood,Urine NEG (Negative); Ketones,Urine NEG (Negative); Leukocyte Esterase,Urine NEG (Negative); Nitrite,Urine NEG (Negative); Protein,Urine <15 mg/dL mg/dL (Negative); Urobilinogen,Urine < 2.0 mg/dL (<2.0)
--- NOTE | 2017-05-30 18:55 | Emergency Department Report ---
ED Abdominal Pain HPI - General Chief Complaint: Abdominal Pain Stated Complaint: ABD PAIN Time Seen by Provider: 05/30/17 16:13 Source: patient, EMS Mode of arrival: Stretcher Limitations: Physical Limitation - History of Present Illness Initial Comments: Patient with LLQ abdominal pain and N/V. She reports this has been going on for 4 months and she has been seen in early May already for the same problem. She reports there is no new change in the symptoms but does not know what is causing it. -: month(s) (4) Location: LLQ Radiation: other (left shoulder.) Migration to: no migration Severity: moderate Severity scale (0 -10): 6 Quality: sharp Consistency: intermittent Improves With: nothing Worsens With: nothing, other (not related to exertion) Associated Symptoms: denies other symptoms - Related Data Home Medications Medication Instructions Recorded Confirmed Last Taken Carvedilol [Coreg] 6.25 mg PO QDAY 11/24/16 05/23/17 Unknown Clopidogrel Bisulfate [Plavix] 75 mg PO QDAY 11/24/16 05/23/17 Unknown Docusate Sodium [Colace CAP] 100 mg PO BID 11/24/16 05/23/17 Unknown Ferrous Sulfate [Feosol 325 MG tab] 325 mg PO QDAY 11/24/16 05/23/17 Unknown Gluc Davies/Chondro Davies A/Vit C/Mn 1 cap PO QDAY 11/24/16 05/23/17 Unknown [Glucosamine 1,500 Complex Cp] ISOSORBIDE MONOnitrate [Imdur ER] 60 mg PO BID 11/24/16 05/23/17 Unknown Multivit with Calcium,Iron,Min 1 tab PO QDAY 11/24/16 05/23/17 Unknown [Multiple Vitamins For Women] Pregabalin [Lyrica] 75 mg PO Q8H 11/24/16 05/23/17 Unknown Acetaminophen [Acetaminophen ER 650 mg PO Q6HR PRN 05/23/17 05/23/17 Unknown TAB] Atorvastatin Calcium 10 mg PO QPM 05/23/17 05/23/17 Unknown Ciprofloxacin HCl [Cipro] 500 mg PO BID 05/23/17 05/23/17 Unknown Phenazopyridine [Pyridium] 200 mg PO TID 05/23/17 05/23/17 Unknown Previous Rx's Medication Instructions Recorded Last Taken Type Gabapentin [Neurontin] 300 mg PO Q8HR capsule 11/27/16 Unknown Rx Spironolactone [Aldactone] 25 mg PO QDAY tablet 11/27/16 Unknown Rx hydrALAZINE [Apresoline TAB] 25 mg PO Q8HR tablet 11/27/16 Unknown Rx HYDROcodone/APAP 5-325 [[place] 1 each PO Q4HR PRN 5 Days tablet 05/24/17 Unknown Rx 5-325 mg TAB] Ondansetron [Zofran TAB] 4 mg PO Q8HR PRN #30 tablet 05/30/17 Unknown Rx Allergies Allergy/AdvReac Type Severity Reaction Status Date / Time epinephrine Allergy Unknown Verified 05/29/16 17:42 morphine Allergy Unknown Verified 05/29/16 17:42 Penicillins Allergy Unknown Verified 05/29/16 17:42 ED Review of Systems ROS: Stated complaint: ABD PAIN Other details as noted in HPI Constitutional: denies: chills, fever Eyes: denies: eye pain, eye discharge, vision change ENT: denies: ear pain, throat pain Respiratory: denies: cough, shortness of breath, wheezing Cardiovascular: denies: chest pain, palpitations Endocrine: no symptoms reported Gastrointestinal: abdominal pain, nausea. denies: diarrhea Genitourinary: denies: urgency, dysuria, discharge Musculoskeletal: denies: back pain, joint swelling, arthralgia Skin: denies: rash, lesions Neurological: denies: headache, weakness, paresthesias Psychiatric: denies: anxiety, depression Hematological/Lymphatic: denies: easy bleeding, easy bruising ED Past Medical Hx - Past Medical History Previous Medical History?: Yes Hx Hypertension: Yes Hx Congestive Heart Failure: Yes (06/05/2016: EF 25-30%) Hx Diabetes: Yes (type 2) Hx Deep Vein Thrombosis: (?) Hx Arthritis: Yes Hx HIV: No Additional medical history: Hyperlipidemia. Ischemic cardiomyopathy. Chronic pain syndrome - Surgical History Past Surgical History?: Yes Hx Open Heart Surgery: Yes (cabg) Hx Pacemaker: Yes Hx Internal Defibrillator: Yes Additional Surgical History: pacemaker - Social History Smoking Status: Smoker, Current Status Unknown Substance Use Type: None - Medications Home Medications: Home Medications Medication Instructions Recorded Confirmed Last Taken Type Carvedilol [Coreg] 6.25 mg PO QDAY 11/24/16 05/23/17 Unknown History Clopidogrel Bisulfate [Plavix] 75 mg PO QDAY 11/24/16 05/23/17 Unknown History Docusate Sodium [Colace CAP] 100 mg PO BID 11/24/16 05/23/17 Unknown History Ferrous Sulfate [Feosol 325 MG tab] 325 mg PO QDAY 11/24/16 05/23/17 Unknown History Gluc Davies/Chondro Davies A/Vit C/Mn 1 cap PO QDAY 11/24/16 05/23/17 Unknown History [Glucosamine 1,500 Complex Cp] ISOSORBIDE MONOnitrate [Imdur ER] 60 mg PO BID 11/24/16 05/23/17 Unknown History Multivit with Calcium,Iron,Min 1 tab PO QDAY 11/24/16 05/23/17 Unknown History [Multiple Vitamins For Women] Pregabalin [Lyrica] 75 mg PO Q8H 11/24/16 05/23/17 Unknown History Gabapentin [Neurontin] 300 mg PO Q8HR capsule 11/27/16 05/23/17 Unknown Rx Spironolactone [Aldactone] 25 mg PO QDAY tablet 11/27/16 05/23/17 Unknown Rx hydrALAZINE [Apresoline TAB] 25 mg PO Q8HR tablet 11/27/16 05/23/17 Unknown Rx Acetaminophen [Acetaminophen ER 650 mg PO Q6HR PRN 05/23/17 05/23/17 Unknown History TAB] Atorvastatin Calcium 10 mg PO QPM 05/23/17 05/23/17 Unknown History Ciprofloxacin HCl [Cipro] 500 mg PO BID 05/23/17 05/23/17 Unknown History Phenazopyridine [Pyridium] 200 mg PO TID 05/23/17 05/23/17 Unknown History HYDROcodone/APAP 5-325 [[place] 1 each PO Q4HR PRN 5 Days tablet 05/24/17 Unknown Rx 5-325 mg TAB] Ondansetron [Zofran TAB] 4 mg PO Q8HR PRN #30 tablet 05/30/17 Unknown Rx ED Physical Exam - General Limitations: Physical Limitation General appearance: alert, in no apparent distress - Head Head exam: Present: atraumatic, normocephalic - Eye Eye exam: Present: normal appearance - ENT ENT exam: Present: mucous membranes moist - Neck Neck exam: Present: normal inspection - Respiratory Respiratory exam: Present: normal lung sounds bilaterally. Absent: respiratory distress - Cardiovascular Cardiovascular Exam: Present: regular rate, normal rhythm. Absent: systolic murmur, diastolic murmur, rubs, gallop - GI/Abdominal GI/Abdominal exam: Present: soft, tenderness (TTP greatest in the LLQ but no peritonitis or guarding.), normal bowel sounds - Extremities Exam Extremities exam: Present: normal inspection - Back Exam Back exam: Present: normal inspection - Neurological Exam Neurological exam: Present: alert, oriented X3 - Psychiatric Psychiatric exam: Present: normal affect, normal mood - Skin Skin exam: Present: warm, dry, intact, normal color. Absent: rash ED Course Vital Signs 05/30/17 05/30/17 05/30/17 14:55 15:42 16:18 Temperature 98.2 F Pulse Rate 67 67 Respiratory 18 16 16 Rate Blood Pressure 119/48 Blood Pressure 121/48 [Right] O2 Sat by Pulse 98 97 Oximetry ED Medical Decision Making - Lab Data Result diagrams: 05/30/17 16:30 05/30/17 16:30 Labs are unchanged from early May. She does appear dehydrated. U/A wnl. - Medical Decision Making Patient with recent workup here including CT scan. Needed repeat labs which are unchanged from before and with patient stating chronic problem. No labs were different and patient is not toxic or have an acute abdomen. Will send back home. Encouraged to hydrate better as symptoms may be related to dehydration and caffeine use. Critical care attestation.: If time is entered above; I have spent that time in minutes in the direct care of this critically ill patient, excluding procedure time. ED Disposition Clinical Impression: Abdominal pain, LLQ, Dehydration Disposition: TO HOME OR SELFCARE Is pt being admited?: No Does the pt Need Aspirin: No Condition: Good Instructions: Dehydration (ED), Abdominal Pain (ED) Prescriptions: Ondansetron [Zofran TAB] 4 mg PO Q8HR PRN #30 tablet PRN Reason: Nausea Referrals: DARWIN GARLAND MD [Primary Care Provider] - 3-5 Days Time of Disposition: 19:04
[2017-05-30 18:57] LABS: RBC,Urine < 1.0 /HPF (0.0-6.0); WBC,Urine < 1.0 /HPF (0.0-6.0)
[2017-05-31 04:01] VITALS: BP 118/54
== END 2017-05-31 00:54 | disposition home or self-care (01) ==
LOC: ED 14:44
DX: R11.2 Nausea with vomiting, unspecified (principal); R10.32 Left lower quadrant pain; E86.0 Dehydration; I10 Essential (primary) hypertension; I50.9 Heart failure, unspecified; E11.9 Type 2 diabetes mellitus without complications
CPT/HCPCS: 36415; 51701; 80048; 80074; 81001; 82150; 83690; 85025; 96374; 99284; J1885